=== PATIENT | female | born 1955 | race Caucasian/White ===

== ENCOUNTER 2024-01-12 22:48 | Emergency (ER) | payer OTHER, SELFPAY ==
[2024-01-12 23:11] VITALS: BP 117/101; PULSE 84; TEMP 36.6; O2SAT 98; BMI 28.4
== END 2024-01-12 23:20 | disposition left against medical advice (07) ==
LOC: ER 23:00
PROVIDERS: Emergency Provider Internal Medicine; PCP Nurse Practitioner
DX: Z53.21 Procedure and treatment not carried out due to patient leaving prior to being seen by health care provider (principal)